=== PATIENT | male | born 1970 | race Caucasian/White ===

== ENCOUNTER 2024-08-17 18:44 | Inpatient (IN) ==
[2024-08-17] MEDS: HYDROmorphone 0.5 MG/0.5 ML SYRINGE IV ONE (19:32)
[2024-08-17] MEDS: ONDANSETRON 4 MG/2 ML VIAL IV ONE (19:33)
[2024-08-17 19:47] LABS: Basophils # (Auto) 0.04 K/mcL (0.00-0.30); Basophils % (Auto) 0.4 % (0.0-2.0); Eosinophils # (Auto) 0.15 K/mcL (0.00-0.70); Eosinophils % (Auto) 1.6 % (0.0-7.0); Hematocrit 44.1 % (40.1-51.0); Hemoglobin 14.1 g/dL (13.7-17.5); Lymphocytes # (Auto) 1.42 K/mcL (1.50-4.80); Lymphocytes % (Auto) 14.9 % (15.5-49.0); Mean Cell Volume 91.9 fL (80.0-100.0); Mean Platelet Volume 9.2 fL (8.8-12.5); Monocytes # (Auto) 0.46 K/mcL (0.10-0.90); Monocytes % (Auto) 4.8 % (1.0-12.0); Neutrophils % (Auto) 78.2 % (38.0-78.0); Platelet Count 437 K/mcL (140-440); Red Cell Distribution Width 14.2 % (11.5-14.5); WBC 9.5 K/mcL (4.5-11.0)
[2024-08-17 20:14] LABS: ALT/SGPT 10 U/L (<40); AST/SGOT 19 U/L (<40); Albumin 3.9 gm/dL (3.2-5.2); Albumin/Globulin Ratio 1.1 (1.0-2.3); Alkaline Phosphatase 118 U/L (39-117); Bilirubin,Total 0.2 mg/dL (0.1-1.0); Blood Urea Nitrogen 72 mg/dL (6-20); Calcium 9.1 mg/dL (8.6-10.4); Carbon Dioxide 13 mmol/L (22-30); Chloride 111 mmol/L (96-108); Globulin 3.7 gm/dL (2.2-3.7); Glomerular Filtration Rate 29; Glucose 90 mg/dL (70-105); Potassium 4.1 mmol/L (3.3-5.1); Sodium 141 mmol/L (133-145)
[2024-08-17 21:36] LABS: Appearance,Urine Cloudy (Clear); Bacteria,Urine Mod /hpf (0); Bilirubin,Urine Negative (Negative); Color,Urine Yellow; Glucose,Urine (UA) Negative (Negative); Ketones,Urine Negative (Negative); Leukocyte Esterase,Urine Large /uL (Negative); Nitrate,Urine Negative (Negative); Protein,Urine 100 mg/dL (Negative); Specific Gravity,Urine 1.015 (1.000-1.035); Urine Blood Moderate ery/mcL (Negative); Urine RBC 0 /hpf (0-3); Urine Squamous Epithelial Cell 0 /hpf (0-4); Urine WBC > 182 /hpf (0-4); Urobilinogen,Urine Normal
[2024-08-17] MEDS: 0.9 % SODIUM CHLORIDE 1,000 ML IV SCH (22:40)
[2024-08-17] MEDS: cefTRIAXone 2 GM in DEXTROSE 5% IN WATER 50 ML IV ONE (22:40)
[2024-08-18] MEDS: AZITHROMYCIN 500 MG in 0.9 % SODIUM CHLORIDE 250 ML IV SCH (02:13)
[2024-08-18] MEDS: ONDANSETRON 4 MG/2 ML VIAL IV PRN (02:34)
[2024-08-18] MEDS: ALBUTEROL SULFATE 2.5 MG/3 ML NEBULIZER NEB SCH (02:46)
[2024-08-18] MEDS: HYDROmorphone 2 MG TABLET PO PRN (03:18)
[2024-08-18] MEDS: 0.9 % SODIUM CHLORIDE 1,000 ML IV SCH ×2 (03:19→08:21)
[2024-08-18] MEDS: 0.9 % SODIUM CHLORIDE 10 ML SYRINGE IV SCH ×2 (05:00→14:07)
[2024-08-18] MEDS ORDERED: cefTRIAXone 1 GM VIAL IV SCH (07:00)
[2024-08-18] MEDS ORDERED: ACETAMINOPHEN 325 MG TABLET PO PRN (07:09)
[2024-08-18] MEDS: HYDROmorphone 2 MG TABLET PO SCH (08:21)
[2024-08-18 08:48] LABS: Basophils # (Auto) 0.03 K/mcL (0.00-0.30); Basophils % (Auto) 0.6 % (0.0-2.0); Eosinophils % (Auto) 1.9 % (0.0-7.0); Hematocrit 38.7 % (40.1-51.0); Hemoglobin 12.2 g/dL (13.7-17.5); Lymphocytes # (Auto) 1.17 K/mcL (1.50-4.80); Lymphocytes % (Auto) 21.8 % (15.5-49.0); Mean Cell Volume 93.3 fL (80.0-100.0); Mean Corpuscular HGB Conc 31.5 g/dL (31.0-36.0); Monocytes # (Auto) 0.37 K/mcL (0.10-0.90); Monocytes % (Auto) 6.9 % (1.0-12.0); Neutrophils % (Auto) 68.6 % (38.0-78.0); Platelet Count 360 K/mcL (140-440); RBC 4.15 M/mcL (4.63-6.08); Red Cell Distribution Width 14.2 % (11.5-14.5); WBC 5.4 K/mcL (4.5-11.0)
[2024-08-18 09:19] LABS: C-Reactive Protein 1.86 mg/dL (0.03-0.80)
[2024-08-18 09:22] LABS: ALT/SGPT 10 U/L (<40); AST/SGOT 18 U/L (<40); Albumin 3.4 gm/dL (3.2-5.2); Albumin/Globulin Ratio 1.2 (1.0-2.3); Alkaline Phosphatase 95 U/L (39-117); Bilirubin,Direct < 0.2 mg/dL (0-0.3); Bilirubin,Total < 0.2 mg/dL (0.1-1.0); Blood Urea Nitrogen 62 mg/dL (6-20); Calcium 8.2 mg/dL (8.6-10.4); Carbon Dioxide 11 mmol/L (22-30); Chloride 116 mmol/L (96-108); Globulin 2.8 gm/dL (2.2-3.7); Glomerular Filtration Rate 34; Glucose 89 mg/dL (70-105); Lactate Dehydrogenase 97 U/L (135-225); Phosphorous 3.9 mg/dL (2.5-4.5); Potassium 4.1 mmol/L (3.3-5.1); Sodium 142 mmol/L (133-145); Triglycerides 97 mg/dL (<150); Uric Acid 5.8 mg/dL (2.5-8.0)
[2024-08-18] MEDS: LEVOFLOXACIN 500 MG/100 ML BAG IV ONE (10:28)
[2024-08-18] MEDS: LEVOFLOXACIN 250 MG/50 ML BAG IV ONE (11:31)
[2024-08-18] MEDS: HEPARIN 5,000 UNIT/ML VIAL SQ SCH (11:39)
[2024-08-18] MEDS: ONDANSETRON 4 MG ODT TABLET SL SCH (11:39)
[2024-08-18] MEDS: LEVOFLOXACIN 750 MG/150 ML BAG IV SCH (14:07)
[2024-08-19 06:32] LABS: Basophils # (Auto) 0.04 K/mcL (0.00-0.30); Basophils % (Auto) 0.7 % (0.0-2.0); Eosinophils # (Auto) 0.19 K/mcL (0.00-0.70); Eosinophils % (Auto) 3.4 % (0.0-7.0); Hematocrit 36.7 % (40.1-51.0); Hemoglobin 11.7 g/dL (13.7-17.5); Lymphocytes # (Auto) 1.24 K/mcL (1.50-4.80); Lymphocytes % (Auto) 22.3 % (15.5-49.0); Mean Cell Volume 94.1 fL (80.0-100.0); Mean Corpuscular HGB Conc 31.9 g/dL (31.0-36.0); Mean Platelet Volume 8.9 fL (8.8-12.5); Monocytes # (Auto) 0.59 K/mcL (0.10-0.90); Monocytes % (Auto) 10.6 % (1.0-12.0); Platelet Count 319 K/mcL (140-440); Red Cell Distribution Width 14.2 % (11.5-14.5); WBC 5.6 K/mcL (4.5-11.0)
[2024-08-19 07:16] LABS: C-Reactive Protein 2.02 mg/dL (0.03-0.80)
[2024-08-19 07:38] LABS: ALT/SGPT 9 U/L (<40); AST/SGOT 18 U/L (<40); Albumin 3.3 gm/dL (3.2-5.2); Albumin/Globulin Ratio 1.3 (1.0-2.3); Alkaline Phosphatase 93 U/L (39-117); Bilirubin,Direct < 0.2 mg/dL (0-0.3); Bilirubin,Total < 0.2 mg/dL (0.1-1.0); Blood Urea Nitrogen 50 mg/dL (6-20); Calcium 8.3 mg/dL (8.6-10.4); Carbon Dioxide 10 mmol/L (22-30); Chloride 118 mmol/L (96-108); Globulin 2.6 gm/dL (2.2-3.7); Glomerular Filtration Rate 38; Glucose 91 mg/dL (70-105); Lactate Dehydrogenase 113 U/L (135-225); Phosphorous 3.7 mg/dL (2.5-4.5); Potassium 4.4 mmol/L (3.3-5.1); Sodium 142 mmol/L (133-145); Triglycerides 64 mg/dL (<150); Uric Acid 4.9 mg/dL (2.5-8.0)
[2024-08-19] MEDS: ENALAPRILAT 1.25 MG/ML VIAL IV PRN (09:08)
[2024-08-19] MEDS: SODIUM BICARBONATE VIAL 50 MEQ in DEXTROSE 5% IN WATER 100 ML IV ONE (09:08)
[2024-08-19] MEDS: SODIUM BICARBONATE 650 MG TABLET PO SCH (09:09)
[2024-08-19] MEDS: SODIUM BICARBONATE 50 MEQ/50 ML VIAL IV ONE (09:14)
[2024-08-19] MEDS: SODIUM BICARBONATE VIAL 150 MEQ in WATER FOR INJECTION,STERILE 850 ML IV SCH (10:08)
[2024-08-19] MEDS: IPRATROPIUM/ALBUTEROL 3 ML AMPUL.NEB NEB PRN (10:09)
[2024-08-19] MEDS: CEFEPIME 1 GM VIAL IV SCH (13:00)
[2024-08-20] MEDS: SUMAtriptan SUCCINATE 50 MG TABLET PO PRN (00:48)
[2024-08-20 06:57] LABS: ALT/SGPT 11 U/L (<40); AST/SGOT 25 U/L (<40); Albumin 3.4 gm/dL (3.2-5.2); Albumin/Globulin Ratio 1.4 (1.0-2.3); Alkaline Phosphatase 92 U/L (39-117); Bilirubin,Direct < 0.2 mg/dL (0-0.3); Bilirubin,Total 0.3 mg/dL (0.1-1.0); Blood Urea Nitrogen 44 mg/dL (6-20); C-Reactive Protein 2.22 mg/dL (0.03-0.80); Calcium 8.1 mg/dL (8.6-10.4); Carbon Dioxide 21 mmol/L (22-30); Chloride 112 mmol/L (96-108); Globulin 2.5 gm/dL (2.2-3.7); Glomerular Filtration Rate 34; Glucose 89 mg/dL (70-105); Lactate Dehydrogenase 116 U/L (135-225); Phosphorous 2.8 mg/dL (2.5-4.5); Potassium 3.7 mmol/L (3.3-5.1); Sodium 145 mmol/L (133-145); Triglycerides 53 mg/dL (<150); Uric Acid 5.1 mg/dL (2.5-8.0)
[2024-08-20] MEDS ORDERED: LEVOFLOXACIN 500 MG/100 ML BAG IV SCH (09:00)
[2024-08-20] MEDS: ONDANSETRON 4 MG ODT TABLET SL PRN (09:02)
[2024-08-20] MEDS: amLODIPine 5 MG TABLET PO SCH (11:43)
[2024-08-21] MEDS: ONDANSETRON 4 MG/2 ML VIAL IV PRN (13:06)
== END 2024-08-21 14:34 | disposition home or self-care (01) ==
LOC: ED 18:44 → MEDSUR 08-18 02:58
PROVIDERS: ADMIT Student in an Organized Health Care Education/Training Program; ATTEND Internal Medicine

== ENCOUNTER 2024-09-21 20:33 | Inpatient (IN) ==
[2024-09-21 21:49] LABS: Basophils # (Auto) 0.05 K/mcL (0.00-0.30); Basophils % (Auto) 0.7 % (0.0-2.0); Eosinophils # (Auto) 0.09 K/mcL (0.00-0.70); Eosinophils % (Auto) 1.3 % (0.0-7.0); Hematocrit 45.3 % (40.1-51.0); Hemoglobin 14.8 g/dL (13.7-17.5); Lymphocytes # (Auto) 1.46 K/mcL (1.50-4.80); Lymphocytes % (Auto) 20.8 % (15.5-49.0); Mean Cell Volume 89.7 fL (80.0-100.0); Mean Corpuscular HGB Conc 32.7 g/dL (31.0-36.0); Mean Platelet Volume 9.3 fL (8.8-12.5); Monocytes # (Auto) 0.54 K/mcL (0.10-0.90); Monocytes % (Auto) 7.7 % (1.0-12.0); Neutrophils % (Auto) 69.4 % (38.0-78.0); Platelet Count 308 K/mcL (140-440); RBC 5.05 M/mcL (4.63-6.08)
[2024-09-21 21:59] LABS: ALT/SGPT 14 U/L (<40); AST/SGOT 20 U/L (<40); Albumin 4.3 gm/dL (3.2-5.2); Albumin/Globulin Ratio 1.3 (1.0-2.3); Alkaline Phosphatase 116 U/L (39-117); Bilirubin,Total 0.2 mg/dL (0.1-1.0); Blood Urea Nitrogen 61 mg/dL (6-20); Calcium 9.4 mg/dL (8.6-10.4); Carbon Dioxide 16 mmol/L (22-30); Chloride 106 mmol/L (96-108); Globulin 3.4 gm/dL (2.2-3.7); Glomerular Filtration Rate 28; Glucose 90 mg/dL (70-105); Potassium 4.1 mmol/L (3.3-5.1); Sodium 137 mmol/L (133-145)
[2024-09-21 22:44] LABS: Appearance,Urine Turbid (Clear); Bacteria,Urine Mod /hpf (0); Bilirubin,Urine Negative (Negative); Color,Urine Yellow; Glucose,Urine (UA) Negative (Negative); Ketones,Urine Negative (Negative); Leukocyte Esterase,Urine Large /uL (Negative); Nitrate,Urine Positive (Negative); Protein,Urine >=300 mg/dL (Negative); Specific Gravity,Urine 1.015 (1.000-1.035); Urine Blood Moderate ery/mcL (Negative); Urine RBC 17 /hpf (0-3); Urine Squamous Epithelial Cell 0 /hpf (0-4); Urine WBC > 182 /hpf (0-4); Urobilinogen,Urine Normal
[2024-09-22 00:42] LABS: INR 0.9 (0.9-1.1); Prothrombin Time 12.7 sec (11.9-14.5)
[2024-09-22] MEDS: HYDROmorphone 0.5 MG/0.5 ML SYRINGE IV ONE (00:45)
[2024-09-22] MEDS: ONDANSETRON 4 MG/2 ML VIAL IV ONE (00:45)
[2024-09-22] MEDS: 0.9 % SODIUM CHLORIDE 1,000 ML IV ONE (00:45)
[2024-09-22] MEDS: cefTRIAXone 2 GM in DEXTROSE 5% IN WATER 50 ML IV ONE (00:58)
[2024-09-22] MEDS: cefTRIAXone 1 GM VIAL ONE (01:00)
[2024-09-22] MEDS: CEFEPIME 2 GM VIAL IV ONE (03:02)
[2024-09-22] MEDS: HYDROmorphone 2 MG TABLET PO ONE (05:56)
[2024-09-22] MEDS: CEFEPIME 2 GM VIAL IV SCH (08:30)
[2024-09-22 08:44] LABS: Basophils # (Auto) 0.04 K/mcL (0.00-0.30); Basophils % (Auto) 0.7 % (0.0-2.0); Eosinophils # (Auto) 0.18 K/mcL (0.00-0.70); Eosinophils % (Auto) 3.3 % (0.0-7.0); Hematocrit 46.4 % (40.1-51.0); Lymphocytes # (Auto) 1.52 K/mcL (1.50-4.80); Mean Cell Volume 89.4 fL (80.0-100.0); Mean Corpuscular HGB Conc 32.3 g/dL (31.0-36.0); Mean Platelet Volume 9.1 fL (8.8-12.5); Monocytes # (Auto) 0.52 K/mcL (0.10-0.90); Monocytes % (Auto) 9.6 % (1.0-12.0); Neutrophils % (Auto) 58.4 % (38.0-78.0); Platelet Count 279 K/mcL (140-440); RBC 5.19 M/mcL (4.63-6.08); Red Cell Distribution Width 14.1 % (11.5-14.5); WBC 5.4 K/mcL (4.5-11.0)
[2024-09-22] MEDS: LACTATED RINGERS 1,000 ML IV SCH (09:11)
[2024-09-22 09:15] LABS: ALT/SGPT 15 U/L (<40); AST/SGOT 21 U/L (<40); Albumin 4.3 gm/dL (3.2-5.2); Albumin/Globulin Ratio 1.2 (1.0-2.3); Alkaline Phosphatase 112 U/L (39-117); Bilirubin,Direct < 0.2 mg/dL (0-0.3); Bilirubin,Total < 0.2 mg/dL (0.1-1.0); Blood Urea Nitrogen 55 mg/dL (6-20); Calcium 8.9 mg/dL (8.6-10.4); Carbon Dioxide 17 mmol/L (22-30); Chloride 109 mmol/L (96-108); Globulin 3.5 gm/dL (2.2-3.7); Glomerular Filtration Rate 32; Glucose 95 mg/dL (70-105); Lactate Dehydrogenase 133 U/L (135-225); Sodium 141 mmol/L (133-145); Triglycerides 126 mg/dL (<150); Uric Acid 5.8 mg/dL (2.5-8.0)
[2024-09-22] MEDS ORDERED: ACETAMINOPHEN 325 MG TABLET PO PRN (09:27)
[2024-09-22] MEDS: HEPARIN 5,000 UNIT/ML VIAL SQ SCH (11:02)
[2024-09-22] MEDS: amLODIPine 5 MG TABLET PO SCH (11:28)
[2024-09-22] MEDS ORDERED: ALBUTEROL SULFATE 2.5 MG/3 ML NEBULIZER NEB PRN (13:38)
[2024-09-22] MEDS: 0.9 % SODIUM CHLORIDE 10 ML SYRINGE IV SCH (14:04)
[2024-09-22] MEDS: LEVOFLOXACIN 250 MG TABLET PO SCH (14:44)
[2024-09-22] MEDS: HYDROmorphone 2 MG TABLET PO SCH (15:21)
[2024-09-22] MEDS: AMOXICILLIN/POTASSIUM CLAV 875 MG TABLET PO SCH (18:00)
[2024-09-22] MEDS ORDERED: CEFEPIME 1 GM VIAL IV SCH (21:00)
[2024-09-22] MEDS: ONDANSETRON 4 MG/2 ML VIAL IV PRN (23:23)
[2024-09-23] MEDS: PROCHLORPERAZINE 10 MG/2 ML VIAL IV ONE (05:49)
[2024-09-23 06:32] LABS: Basophils # (Auto) 0.04 K/mcL (0.00-0.30); Basophils % (Auto) 0.5 % (0.0-2.0); Eosinophils # (Auto) 0.23 K/mcL (0.00-0.70); Eosinophils % (Auto) 3.2 % (0.0-7.0); Hematocrit 40.6 % (40.1-51.0); Hemoglobin 13.2 g/dL (13.7-17.5); Lymphocytes # (Auto) 1.29 K/mcL (1.50-4.80); Lymphocytes % (Auto) 17.7 % (15.5-49.0); Mean Cell Volume 90.2 fL (80.0-100.0); Mean Corpuscular HGB Conc 32.5 g/dL (31.0-36.0); Mean Platelet Volume 9.3 fL (8.8-12.5); Monocytes # (Auto) 0.52 K/mcL (0.10-0.90); Monocytes % (Auto) 7.1 % (1.0-12.0); Neutrophils % (Auto) 71.4 % (38.0-78.0); Platelet Count 234 K/mcL (140-440); Red Cell Distribution Width 14.2 % (11.5-14.5); WBC 7.3 K/mcL (4.5-11.0)
[2024-09-23 06:48] LABS: ALT/SGPT 13 U/L (<40); AST/SGOT 20 U/L (<40); Albumin 3.8 gm/dL (3.2-5.2); Albumin/Globulin Ratio 1.3 (1.0-2.3); Alkaline Phosphatase 99 U/L (39-117); Bilirubin,Direct < 0.2 mg/dL (0-0.3); Bilirubin,Total < 0.2 mg/dL (0.1-1.0); Blood Urea Nitrogen 50 mg/dL (6-20); Calcium 8.7 mg/dL (8.6-10.4); Carbon Dioxide 14 mmol/L (22-30); Chloride 112 mmol/L (96-108); Globulin 2.9 gm/dL (2.2-3.7); Glomerular Filtration Rate 34; Glucose 114 mg/dL (70-105); Lactate Dehydrogenase 129 U/L (135-225); Phosphorous 2.6 mg/dL (2.5-4.5); Potassium 3.9 mmol/L (3.3-5.1); Sodium 142 mmol/L (133-145); Triglycerides 59 mg/dL (<150); Uric Acid 4.6 mg/dL (2.5-8.0)
[2024-09-23] MEDS: LACTATED RINGERS 1,000 ML IV SCH (08:03)
[2024-09-23] MEDS: PROCHLORPERAZINE 10 MG/2 ML VIAL IM PRN (10:02)
[2024-09-23] MEDS: AMPICILLIN SODIUM/SULBACTAM NA 3 GM in 0.9 % SODIUM CHLORIDE 100 ML IV SCH (10:50)
[2024-09-23] MEDS: LEVOFLOXACIN 250 MG/50 ML BAG IV SCH (12:12)
[2024-09-23] MEDS: NIFEdipine 30 MG TAB.XL.24H PO SCH (13:20)
[2024-09-23 16:54] LABS: Amphetamine Screen,Urine None detected; Barbiturate Screen,Urine None detected; Benzodiazepines Screen,Urine None detected; Cannabinoid Screen,Urine None detected; Cocaine Screen,Urine None detected; Fentanyl, Urine Screen None Detected; Opiate Screen,Urine None detected; Oxycodone, Urine Screen None detected; Phencyclidine Screen,Urine None detected
[2024-09-23] MEDS: PROCHLORPERAZINE 10 MG/2 ML VIAL IV PRN (19:18)
[2024-09-24 06:19] LABS: Basophils # (Auto) 0.03 K/mcL (0.00-0.30); Basophils % (Auto) 0.5 % (0.0-2.0); Eosinophils # (Auto) 0.04 K/mcL (0.00-0.70); Eosinophils % (Auto) 0.7 % (0.0-7.0); Hematocrit 34.8 % (40.1-51.0); Hemoglobin 11.6 g/dL (13.7-17.5); Lymphocytes # (Auto) 1.09 K/mcL (1.50-4.80); Lymphocytes % (Auto) 18.7 % (15.5-49.0); Mean Cell Volume 88.3 fL (80.0-100.0); Mean Corpuscular HGB Conc 33.3 g/dL (31.0-36.0); Mean Platelet Volume 9.5 fL (8.8-12.5); Monocytes # (Auto) 0.54 K/mcL (0.10-0.90); Monocytes % (Auto) 9.3 % (1.0-12.0); Neutrophils % (Auto) 70.8 % (38.0-78.0); Platelet Count 232 K/mcL (140-440); RBC 3.94 M/mcL (4.63-6.08); Red Cell Distribution Width 14.3 % (11.5-14.5); WBC 5.8 K/mcL (4.5-11.0)
[2024-09-24 06:36] LABS: ALT/SGPT 10 U/L (<40); AST/SGOT 16 U/L (<40); Albumin 3.4 gm/dL (3.2-5.2); Albumin/Globulin Ratio 1.4 (1.0-2.3); Alkaline Phosphatase 85 U/L (39-117); Bilirubin,Direct < 0.2 mg/dL (0-0.3); Bilirubin,Total 0.2 mg/dL (0.1-1.0); Blood Urea Nitrogen 33 mg/dL (6-20); Calcium 8.4 mg/dL (8.6-10.4); Carbon Dioxide 19 mmol/L (22-30); Chloride 111 mmol/L (96-108); Globulin 2.4 gm/dL (2.2-3.7); Glomerular Filtration Rate 34; Glucose 102 mg/dL (70-105); Lactate Dehydrogenase 110 U/L (135-225); Phosphorous 2.1 mg/dL (2.5-4.5); Potassium 3.5 mmol/L (3.3-5.1); Sodium 142 mmol/L (133-145); Triglycerides 107 mg/dL (<150); Uric Acid 5.4 mg/dL (2.5-8.0)
[2024-09-24] MEDS: SUMAtriptan SUCCINATE 50 MG TABLET PO PRN (09:30)
[2024-09-25 07:02] LABS: Basophils # (Auto) 0.05 K/mcL (0.00-0.30); Eosinophils # (Auto) 0.15 K/mcL (0.00-0.70); Hematocrit 35.6 % (40.1-51.0); Hemoglobin 11.6 g/dL (13.7-17.5); Lymphocytes # (Auto) 1.65 K/mcL (1.50-4.80); Lymphocytes % (Auto) 33.2 % (15.5-49.0); Mean Cell Volume 89.7 fL (80.0-100.0); Mean Corpuscular HGB Conc 32.6 g/dL (31.0-36.0); Mean Platelet Volume 9.9 fL (8.8-12.5); Monocytes # (Auto) 0.54 K/mcL (0.10-0.90); Monocytes % (Auto) 10.9 % (1.0-12.0); Neutrophils % (Auto) 51.9 % (38.0-78.0); Platelet Count 239 K/mcL (140-440); RBC 3.97 M/mcL (4.63-6.08); Red Cell Distribution Width 14.3 % (11.5-14.5)
[2024-09-25 07:03] LABS: ALT/SGPT 12 U/L (<40); AST/SGOT 18 U/L (<40); Albumin 3.4 gm/dL (3.2-5.2); Albumin/Globulin Ratio 1.4 (1.0-2.3); Alkaline Phosphatase 87 U/L (39-117); Bilirubin,Direct < 0.2 mg/dL (0-0.3); Bilirubin,Total < 0.2 mg/dL (0.1-1.0); Blood Urea Nitrogen 38 mg/dL (6-20); Calcium 8.6 mg/dL (8.6-10.4); Carbon Dioxide 18 mmol/L (22-30); Chloride 109 mmol/L (96-108); Globulin 2.5 gm/dL (2.2-3.7); Glomerular Filtration Rate 38; Glucose 98 mg/dL (70-105); Lactate Dehydrogenase 121 U/L (135-225); Potassium 3.9 mmol/L (3.3-5.1); Sodium 141 mmol/L (133-145); Triglycerides 69 mg/dL (<150); Uric Acid 5.2 mg/dL (2.5-8.0)
[2024-09-25] MEDS: AMOXICILLIN/POTASSIUM CLAV 875 MG TABLET PO SCH (07:45)
[2024-09-25] MEDS: LEVOFLOXACIN 250 MG TABLET PO SCH (08:23)
[2024-09-25] MEDS: amLODIPine 10 MG TABLET PO SCH (11:00)
[2024-09-26] MEDS: HYDROmorphone 2 MG TABLET PO PRN (00:44)
[2024-09-26 06:08] LABS: Basophils # (Auto) 0.02 K/mcL (0.00-0.30); Basophils % (Auto) 0.4 % (0.0-2.0); Eosinophils # (Auto) 0.22 K/mcL (0.00-0.70); Eosinophils % (Auto) 4.4 % (0.0-7.0); Hematocrit 37.5 % (40.1-51.0); Hemoglobin 12.3 g/dL (13.7-17.5); Lymphocytes # (Auto) 1.62 K/mcL (1.50-4.80); Lymphocytes % (Auto) 32.5 % (15.5-49.0); Mean Cell Volume 89.1 fL (80.0-100.0); Mean Corpuscular HGB Conc 32.8 g/dL (31.0-36.0); Mean Platelet Volume 9.4 fL (8.8-12.5); Monocytes # (Auto) 0.59 K/mcL (0.10-0.90); Monocytes % (Auto) 11.8 % (1.0-12.0); Neutrophils % (Auto) 50.9 % (38.0-78.0); Platelet Count 233 K/mcL (140-440); RBC 4.21 M/mcL (4.63-6.08); Red Cell Distribution Width 14.1 % (11.5-14.5)
[2024-09-26 06:46] LABS: ALT/SGPT 12 U/L (<40); AST/SGOT 19 U/L (<40); Albumin 3.6 gm/dL (3.2-5.2); Albumin/Globulin Ratio 1.3 (1.0-2.3); Alkaline Phosphatase 89 U/L (39-117); Bilirubin,Direct < 0.2 mg/dL (0-0.3); Bilirubin,Total 0.3 mg/dL (0.1-1.0); Blood Urea Nitrogen 48 mg/dL (6-20); Calcium 8.3 mg/dL (8.6-10.4); Carbon Dioxide 19 mmol/L (22-30); Chloride 107 mmol/L (96-108); Globulin 2.7 gm/dL (2.2-3.7); Glomerular Filtration Rate 36; Glucose 97 mg/dL (70-105); Lactate Dehydrogenase 149 U/L (135-225); Phosphorous 3.7 mg/dL (2.5-4.5); Sodium 140 mmol/L (133-145); Triglycerides 51 mg/dL (<150); Uric Acid 5.8 mg/dL (2.5-8.0)
[2024-09-26] MEDS: amLODIPine 10 MG TABLET PO SCH (08:15)
== END 2024-09-26 15:05 | disposition home or self-care (01) | DRG 690 ==
LOC: ED 20:33 → MEDSUR 09-22 09:19
PROVIDERS: ADMIT Student in an Organized Health Care Education/Training Program; ATTEND Student in an Organized Health Care Education/Training Program